=== PATIENT | male | born 1995 | race Caucasian/White ===

== ENCOUNTER 2021-09-26 09:39 | Emergency (ER) | payer BC, SELFPAY ==
[2021-09-26 09:45] VITALS: BP 156/106; PULSE 90; RESP 16; TEMP 36.7; O2SAT 98
[2021-09-26 10:05] LABS: Basophils Percent Auto 0.6 % (0.2-1.2); Eosinophils Absolute Auto 0.4 K/mm3 (0-0.3); Eosinophils Percent Auto 5.1 % (0-4.4); Hematocrit 46.8 % (42.0-52.0); Hemoglobin 15.7 g/dL (14.0-18.0); Immature Granulocyte Absolute 0.02 K/mm3 (0.00-0.031); Immature Granulocyte Percent A 0.3 % (0-0.5); Lymphocytes Percent Auto 27.1 % (18.3-44.2); Mean Corpuscular HGB Conc 33.5 g/dl (32-36); Mean Corpuscular Hemoglobin 29.2 pg (26-34); Mean Corpuscular Volume 87.2 fl (80-100); Mean Platelet Volume 9.8 fl (7.4-10.4); Monocytes Absolute Auto 0.6 K/mm3 (0.1-0.6); Monocytes Percent Auto 7.8 % (2.6-8.5); Neutrophils Absolute Auto 4.2 K/mm3 (1.3-6.7); Neutrophils Percent Auto 59.1 % (45.5-73.1); Platelet Count Result 308 k/mm3 (150-375); Red Blood Count 5.37 M/mm3 (4.6-6.20); Red Cell Distribution Width 12.5 % (11.5-14.5)
[2021-09-26 10:12] LABS: Add Urine Microscopic? YES; Appearance Urine Clear (Clear); Bilirubin Urine Negative (Negative); Blood Urine Negative (Negative); Color Urine Yellow (Yellow); Glucose Urine UA Negative (Negative); Ketones Urine Negative (Negative); Leukocyte Esterase Ur Negative LEU/UL (Negative); Mucus Urine Heavy /lpf; Nitrate Urine Negative (Negative); Protein Urine 1+ mg/dL (Negative); RBC Urine 0-2 /hpf (0-2); Specific Grav Ur 1.029 (1.001-1.035); Squamous Epithelial Cell Urine Rare /hpf (Few); Urobilinogen Urine Negative mg/dL (<2.0); WBC Urine 0-3 /hpf
[2021-09-26 10:34] LABS: Alanine Aminotransferase 74 U/L (4-50); Albumin Level 4.6 g/dL (3.5-5.1); Alkaline Phosphatase 88 U/L (38-126); Anion Gap 5 mmol/L (8-16); Aspartate Amino Transferase 167 U/L (17-59); Bilirubin,Total 0.4 mg/dL (0.2-1.3); Blood Urea Nitrogen 15 mg/dL (9-20); Calcium 8.8 mg/dL (8.4-10.2); Carbon Dioxide 31 mmol/L (22-30); Chloride 103 mmol/L (98-107); Estimated CRCL calculation 122 ml/min; Estimated Glomerular Filt Rate > 60; Glucose 100 mg/dL (65-110); Lipase 56 U/L (23-300); Potassium 4.4 mmol/L (3.4-5.0); Sodium 139 mmol/L (137-145)
--- NOTE | 2021-09-26 11:29 | ED.ABDPAIN ---
HPI - Abdominal Pain General Chief Complaint: Abdominal Pain Stated Complaint: abd pain Time Seen by Provider: 09/26/21 09:41 Source: patient and RN notes reviewed Mode of arrival: ambulatory Limitations: no limitations History of Present Illness HPI narrative: 26-year-old male presenting to the emergency department for evaluation of intermittent abdominal cramping with associated nausea without vomiting. Patient denies any abdominal pain but describes it as his stomach is rumbling. patient also does report alternating constipation and diarrhea. Patient states the symptoms have been ongoing for approximately last 7 months. Patient has had follow-up with both his primary care physician who started the patient on omeprazole and with a GI specialist to start the patient on Bentyl and suspected the patient had IBS. Patient states he saw GI approximately 3 weeks ago and reports no change in his symptoms from either the omeprazole or Bentyl. Patient reports for approximately a week he did remove dairy and for another week he did remove gluten but reported no significant improvement. Patient reports he drinks approximately 32 ounces of water a day. Patient denies daily drinking and denies THC use (other than one gummy a few weeks ago). Related Data Home Medications Medication Instructions Recorded Confirmed dicyclomine [Bentyl] 10 mg PO BID 09/26/21 Allergies Allergy/AdvReac Type Severity Reaction Status Date / Time No Known Allergies Allergy Verified 09/26/21 09:48 Review of Systems Review of Systems: CONSTITUTIONAL: Denies fever, chills, or sweats. EYES: Denies visual changes, redness, or discharge. ENT: Denies rhinorrhea, congestion, sore throat, or otalgia. CARDIOVASCULAR: Denies chest pain, palpitations, or edema. RESPIRATORY: Denies cough or dyspnea. GASTROINTESTINAL: See HPI GENITOURINARY: Denies dysuria or hematuria. SKIN: Denies rash or itching. MUSCULOSKELETAL: Denies back pain, joint pain, or myalgia. NEUROLOGIC: Denies headache, numbness, or weakness. Exam Narrative: APPEARANCE: Well appearing, no pain, no distress, well-nourished. HEAD: normocephalic, atraumatic. EYES: PERRLA/EOMI, conjunctivae clear. NECK: Supple. No adenopathy, no masses. RESPIRATORY: Airway patent, respirations nonlabored. Clear to auscultation bilaterally, no rales, rhonchi, wheezing. CARDIOVASCULAR: Regular rate and rhythm without murmurs rubs or gallops. ABDOMINAL: Soft, nontender, nondistended, normal bowel sounds MUSCULOSKELETAL: Moves all extremities. Strength/ROM intact, No edema, No calf tenderness. NEURO: Alert. Cranial nerves II through XII intact. Grossly intact SKIN: Warm, dry. Normal Color Course Course Emergency Course: Patient was updated on the results of his labs. Patient was recommended to continue to have follow-up with GI and to follow an elimination diet. Patient has a soft benign nontender nonsurgical abdomen. Vital Signs Vital signs: Vital Signs Temperature 98.1 F 09/26/21 09:45 Pulse Rate 90 09/26/21 09:45 Respiratory Rate 16 09/26/21 09:45 Blood Pressure 156/106 H 09/26/21 09:45 Pulse Oximetry 98 09/26/21 09:45 Temperature 98.1 F 09/26/21 09:45 Pulse Rate 90 09/26/21 09:45 Respiratory Rate 16 09/26/21 09:45 Blood Pressure 156/106 H 09/26/21 09:45 Pulse Oximetry 98 09/26/21 09:45 MDM - Abdominal Pain Differential Diagnosis Differential diagnosis: Likely abdominal pain and constipation Lab Data Attestation: I reviewed the patient's lab results. Result diagrams: 09/26/21 09:59 09/26/21 10:19 Labs: Lab Results 09/26/21 09/26/21 09/26/21 Range/Units 09:59 09:59 10:19 WBC 7.0 (4.5-10.0) K/mm3 RBC 5.37 (4.6-6.20) M/mm3 Hgb 15.7 (14.0-18.0) g/dL Hct 46.8 (42.0-52.0) % MCV 87.2 (80-100) fl MCH 29.2 (26-34) pg MCHC 33.5 (32-36) g/dl RDW 12.5 (11.5-14.5) % Plt Count 308 (150-375) k/mm3 MPV
== END 2021-09-26 12:00 | disposition home or self-care (01) ==
PROVIDERS: Emergency Provider Emergency Medicine; PCP Internal Medicine
DX: R10.9 Unspecified abdominal pain (principal)
CPT/HCPCS: 36415; 80053; 81001; 83690; 85025; 99283